=== PATIENT | female | born 1950 | race Caucasian/White ===

== ENCOUNTER 2021-09-07 14:58 | Emergency (ER) | payer MEDICARE, BC ==
[~2021-09-07] VITALS: Ht 167.6 cm; Wt 95.5 kg
[2021-09-07 15:29] VITALS: BP 155/87
--- NOTE | 2021-09-07 16:48 | NUR ---
RELL MAZARIEGOS AT BEDSIDE
== END 2021-09-07 18:50 | disposition home or self-care (01) ==
LOC: ER 15:03
DX: S00.83XA Contusion of other part of head, initial encounter (principal); S50.811A Abrasion of right forearm, initial encounter; S60.416A Abrasion of right little finger, initial encounter; M54.2 Cervicalgia; M25.531 Pain in right wrist; M79.644 Pain in right finger(s); M25.511 Pain in right shoulder; H92.01 Otalgia, right ear; Z90.710 Acquired absence of both cervix and uterus; Z88.0 Allergy status to penicillin; I11.0 Hypertensive heart disease with heart failure; I50.9 Heart failure, unspecified; K21.9 Gastro-esophageal reflux disease without esophagitis; E11.9 Type 2 diabetes mellitus without complications; E78.00 Pure hypercholesterolemia, unspecified; W01.0XXA Fall on same level from slipping, tripping and stumbling without subsequent striking against object, initial encounter; Z91.81 History of falling; Y93.89 Activity, other specified; Y92.89 Other specified places as the place of occurrence of the external cause; Y99.8 Other external cause status
CPT/HCPCS: 70450; 70486; 72125; 73110; 73130; 82948; 99284

== ENCOUNTER 2025-01-05 13:12 | Outpatient (CLI) | payer MEDICARE ==
--- NOTE | 2025-01-05 14:48 | RADIOLOGY REPORT ---
PROCEDURE: MR MRI LUMBAR SPINE INDICATION: LOW BACK PAIN Exam Date: 01/05/2025 01:29 PM COMPARISON: None TECHNIQUE: MRI lumbar spine without intravenous contrast. FINDINGS: Transitional lumbosacral vertebral body. Multilevel disc degeneration. Alignment: Grade 1 retrolisthesis of T12 on L1. Grade 1 retrolisthesis of L1 on L2. Grade 1 retrolisthesis of L2 on L3. Grade 2 retrolisthesis of L3 on L4. Grade 2 anterolisthesis of L4 on L5. Vertebrae: Vertebral body height is well maintained without evidence of a recent compression fracture. Conus: Conus medullaris terminates at the L1 level. Following axial levels detailed below: T12-L1: Grade 1 retrolisthesis of T12 on L1 by 2.6 mm. Disc desiccation. No spinal canal or neural foraminal stenosis. Facet arthrosis. L1-2: Grade 1 retrolisthesis of L1 on L2 by 2.6 mm. Disc desiccation. No spinal canal or neural foraminal stenosis. Facet arthrosis. L2-3: Grade 1 retrolisthesis of L2 on L3 by 3.7 mm. Disc desiccation. Mild bilateral lateral recess stenosis. Mild left foraminal stenosis. Facet arthrosis. L3-4: Grade 2 retrolisthesis of L3 on L4. Disc desiccation and 4.45 mm disc bulge. Mild spinal canal stenosis. Mild left lateral recess stenosis. Mild left foraminal stenosis. Facet arthrosis. L4-5: Grade 2 anterolisthesis of L4 on L5. Disc desiccation and 7.6 mm disc bulge. Mild disc height loss. Moderate spinal canal stenosis. Mild left and severe right lateral recess stenosis with right descending L5 nerve root compression. Mild left and severe right foraminal stenosis with potential right exiting L4 nerve root compression from bulge. Facet arthrosis. L5-S1: Transitional level. Disc desiccation. Mild disc height loss. No spinal canal or neural foraminal stenosis. Facet arthrosis. IMPRESSION: Multilevel disc degeneration. Multilevel spinal canal stenosis, most pronounced and moderate at L4-L5. Multilevel lateral recess stenosis, most pronounced and severe at L4-L5 with right descending L5 nerve root compression. Multilevel foraminal stenosis, most pronounced and severe at L4-L5 with potential right exiting L4 nerve root compression from bulge.
== END 2025-01-05 23:59 | disposition home or self-care (01) ==
LOC: MRI02 13:12
PROVIDERS: ATTEND Student in an Organized Health Care Education/Training Program
DX: M51.379 Other intervertebral disc degeneration, lumbosacral region without mention of lumbar back pain or lower extremity pain (principal); M54.50 Low back pain, unspecified; M47.815 Spondylosis without myelopathy or radiculopathy, thoracolumbar region; M48.05 Spinal stenosis, thoracolumbar region; M48.061 Spinal stenosis, lumbar region without neurogenic claudication
CPT/HCPCS: 72148

== ENCOUNTER 2025-04-01 13:00 | Inpatient (IN) | payer MEDICARE, BC ==
[~2025-04-01] VITALS: Ht 167.6 cm; Wt 85.0 kg
--- NOTE | 2025-04-01 13:42 | ELECTROCARDIOGRAPH REPORT ---
[facility] Test Date: 2025-04-01 Test Time: 13:09:46 Pat Name: ADEBAYO ASIF Department: EMERGENCY ROOM Room: ORTHO [facility] Gender: F Licensed Funeral Director: KATERINE : 1950 Requested By: ALEKSANDRA NAJERA Order Number: [id number] Reading MD: Dr. ALCIDES Layton Measurements Intervals [place] Rate: 64 P: 66 FL: 172 QRS: -77 QRSD: 126 T: 13 QT: 451 QTc: 466 Interpretive Statements Sinus rhythm RBBB and LAFB Probable left ventricular hypertrophy Electronically Signed On 04-02-2025 19:22:[address] ALCIDES Layton Please click the below link to view image of tracing.
[2025-04-01 13:45] LABS: MEAN PLATELET VOLUME 8.6 FL (7.4-10.4); RED CELL DISTRIBUTION WIDTH 15.3 % (11.5-14.5)
[2025-04-01 13:59] LABS: CREATININE 0.91 MG/DL (0.40-0.90); PRO BRAIN NATRIURETIC PEPTIDE 51 PG/ML (0-450); TOTAL CARBON DIOXIDE 24.7 MMOL/L (24-32); eCRCL 49 ML/MIN; eGFR 60 ML/MIN
--- NOTE | 2025-04-01 14:05 | RADIOLOGY REPORT ---
CHEST RADIOGRAPH Indication: CP Technique: Single frontal view of the chest was obtained Comparison: None FINDINGS: Lines and Tubes: None Lungs: No focal consolidation. Pleura: No effusion. No pneumothorax. Cardiomediastinal contours: Unremarkable Bones: No acute osseous abnormality. IMPRESSION: No acute cardiopulmonary disease.
--- NOTE | 2025-04-01 17:46 | Physician Documentation ---
Addendum CHIEF COMPLAINT/HPI: The patient is a 74-year-old female with a history of spinal stenosis in the cervical spine and lumbar spine. She also does have chronic positional vertigo. However, over the past four days it has been much worse. She denies any nausea/vomiting. No visual disturbances. REVIEW OF SYSTEMS: Constitutional: Denies chills, fatigue, fever, weight gain or weight loss. HEENT: Denies hearing loss, sinus pressure or visual changes. Respiratory: Denies cough, shortness of breath or wheezing. Cardiovascular: Denies chest pain, pain while walking (claudication), edema or palpitations. Gastrointestinal: Denies abdominal pain, blood in stool, constipation, diarrhea, heartburn, loss of appetite, nausea or vomiting. Genitourinary: Denies painful urination (dysuria), excessive amount of urine (polyuria) or urinary frequency. Metabolic/Endocrine: Denies cold intolerance, heat intolerance, excessive thirst (polydipsia) or excessive hunger (polyphagia). Neurological: Dizziness. Denies extremity numbness, extremity weakness, headaches, seizures or tremors. Psychiatric: Denies anxiety or depression. Integumentary: Denies breast discharge, breast lump, hives, mole change(s), rash or skin lesion. Musculoskeletal: Denies back pain, joint pain, joint swelling or neck pain. Hematologic: Denies easily bleeding, easily bruises, lymphedema or issues with blood clots. Immunologic: Denies food allergies or seasonal allergies. PHYSICAL EXAMINATION: Vitals and nursing note reviewed. Constitutional: General: Patient is awake, alert, oriented x 4 in no acute distress and well appearing. Speech is clear and lucid. Appearance: Normal appearance. Patient is not ill-appearing, toxic-appearing or diaphoretic. HENT: Head: Normocephalic and atraumatic. Mouth: Mucous membranes are moist. Pharynx: Oropharynx is clear. Eyes: General: No scleral icterus. Extraocular Movements: Extraocular movements intact. Pupils: Pupils are equal, round, and reactive to light. Neck: Supple, no Kernig or Brudzinski sign. Cardiovascular: Rate and Rhythm: Normal rate and regular rhythm. Heart sounds: No murmur heard. Pulmonary: Effort: No respiratory distress. Breath sounds: No wheezing, rhonchi or rales. Abdominal: General: There is no distension. Palpations: There is no fluid wave, hepatomegaly or mass. Tenderness: There is no abdominal tenderness. There is no guarding. Musculoskeletal: General: No swelling or deformity. Skin: Coloration: Skin is not jaundiced. Findings: No erythema or rash. Neurological examination: GCS: E-4, V-5, M-6 Motor strength: [motor strength] Sensory: [sensory] erisa attorney: II - XII intact Equilibratory intact MEDICAL DECISION MAKING: This 74-year-old lady presents with acute exacerbation of her dizziness. I have ordered a CT scan of her brain and will get her admitted for MRI. Departure Disposition: ADMITTED INPATIENT Impression: Primary Impression: Dizziness Additional Impression: Neck pain Condition: Stable Education Educated: Patient Educated regarding: diagnosis, treatment ALEKSANDRA NAJERA MD Apr 01, 2025 17:46
[2025-04-01] MEDS ORDERED: HYDROcodone/acetaminophen 5mg/325mg tablet PO PRN (18:00)
[2025-04-01] MEDS ORDERED: potassium Cl 40MEQ/1/2NS 520ml 520 ML IV PRN (18:00)
[2025-04-01] MEDS ORDERED: HYDROcodone/acetaminophen 10/325mg tab PO PRN (18:00)
[2025-04-01] MEDS ORDERED: magnesium sulf-water 4G/100mL 100 ML IV PRN (18:00)
[2025-04-01] MEDS ORDERED: magnesium hydroxide 30ml (MOM) UD suspension PO PRN (18:00)
[2025-04-01] MEDS ORDERED: morphine 4 MG/ML inj SYRINge IV PRN (18:00)
[2025-04-01] MEDS ORDERED: magnesium sulf-water 2g/50mL 50 ML IV PRN (18:00)
[2025-04-01] MEDS ORDERED: potassium Cl 20 mEq SR tablet PO PRN ×2 (18:00)
[2025-04-01] MEDS ORDERED: mag hydrox/Alum hydrox/simeth 30ml oral suspension PO PRN (18:00)
[2025-04-01] MEDS ORDERED: magnesium Cl slow-release 64mg tablet PO PRN (18:00)
--- NOTE | 2025-04-01 18:11 | RADIOLOGY REPORT ---
EXAM: CT CT HEAD INDICATION: Dizziness TECHNIQUE: CT of the head without intravenous contrast. Radiation Dose : 1. Head: CT Dose: CTDI volume is 59.8 mGy. Dose-length product is 1127 mGy*cm The dose indicators for CT are the volume Computed Tomography (CT) Dose Index (CTDIvol) and the Dose Length Product (DLP), and are measured in units of mGy and mGy-cm, respectively. These indicators are not patient dose, but values generated from the CT scanner acquisition factors. The report includes radiation exposure data for exposures received during this examination. COMPARISON: CT HEAD on DOS: 09/07/21 FINDINGS: There is no evidence of acute intracranial hemorrhage, extra-axial collection, mass effect, midline shift, herniation or hydrocephalus. The ventricles, sulci and cisterns are age appropriate. The tony-white differentiation is intact. Patchy periventricular and subcortical white matter hypoattenuation is nonspecific but may be related to small vessel ischemic disease. The visualized paranasal sinuses and mastoid air cells are clear. The surrounding soft tissues and osseous structures are unremarkable. IMPRESSION: No acute intracranial abnormality. Radiation optimization: All CT scans at this facility use at least one of these dose optimization techniques: automated exposure control mA and/or kV adjustment per patient size (includes targeted exams where dose is matched to clinical indication) or iterative reconstruction.
[2025-04-01 18:43] LABS: LEUKOCYTE ESTERASE ,URINE NEGATIVE (Neg); NITRITES, URINE NEGATIVE (Neg); OCCULT BLOOD,URINE NEGATIVE (Neg)
[2025-04-01 18:48] LABS: UA COLLECTION TYPE CLN CATCH MIDSTREAM
[2025-04-01 18:50] LABS: SQUAMOUS EPITHELIAL CELL,UR MODERATE /LPF (FEW)
--- NOTE | 2025-04-01 18:53 | HISTORY AND PHYSICAL-Residence ---
History & Physical Providers to CC Resident Creating Document: JEYSON MORALES, RES ~ History of Present Illness Reason for Admit\Complaint: Dizziness History of Present Illness A 74-year-old female with a past medical history of diabetes mellitus,DVT, peripheral neuropathy, hypertension, and benign paroxysmal positional vertigo (BPPV) presents to the ED with complaints of dizziness and problem maintaining the balance for the past 3 days. She reports near-syncopal episodes and trouble balancing that have been gradually worsening. These episodes are primarily triggered by standing from a sitting position and are relieved by lying flat. but fro past 5 days she mentoned having sevre problems with balance.Associated symptoms include nausea and tingling sensations in her feet. Symptoms are more pronounced when standing. Patient had a severe episodes of vertigo after post concussion happened 10 years ago She denies fall, palpitations, chest pain, shortness of breath, sweating, visual changes, weakness, numbness, or speech difficulties. Medication history: She started gabapentin 2 months ago but has not taken it for the past 23 days. Despite discontinuation, her symptoms persist. She reports no recent changes in other medications. Blood pressure during episodes has reportedly been within normal range per patient. Allergies: Coded Allergies: Penicillins (Verified Allergy, Unknown, 05/02/14) Home Medications Home Medications Active Past Medical History Past Medical History Type 2 diabetes mellitus Hypertension Peripheral neuropathy BPPV Charles's esophagus Gastroparesis Hiatal hernia Hemochromatosis Past Surgical History Surgical History Comment Cholecystectomy Total hysterectomy Lumpectomy of the left breast Left knee replacement Past Social History Social History Comment PCP-Clint Manager Client Service- trucksmith- Neurosurgeon- Patient lives alone in her home, she quit smoking cigarettes and she has occasional alcohol use Able to ambulate without any assistance Alcohol Use: None Drug Use: None Lives with: Spouse Lives In: Home Occupation: employed ROS ROS Review of system is negative except mentioned in the HPI Exam Vitals: Vital Signs Date Time Temp Pulse Resp B/P (MAP) Pulse Ox O2 Delivery O2 Flow Rate FiO2 04/01/25 17:00 67 12 132/67 (88) 95 0 04/01/25 13:41 Room Air* 21 04/01/25 13:03 98.1 General: Awake , alert, and oriented x4 HEENT: Atraumatic, normocephalic, EOMI, anicteric sclera ; pink conjunctiva, dry oral mucosa Neck: Trachea midline. Supple, full range of motion, no JVD Cardiac: Regular rhythm, regular rate with no murmurs all over the precordium. Respiratory: Equal breath sounds bilaterally, no tachypnea, no wheezing ,rub or rales, Chest wall is symmetric and without deformity. Gastrointestinal: Abdomen symmetric, non-distended, soft, non-tender, normal bowel sounds x4 quadrant, normoactive, no hepatosplenomegaly Neurological: Mental status exam: alert and consciousness, orientation, memory, speech - Cranial nerve test: Cranial nerves 2-12 intact - Motor system: Normal Nutrition, normal tone, Power 5/5, no involuntary movements - Sensory system: Intact - Reflex testing: Biceps, triceps and knee reflexes 2+ - Cerebellar: Normal Skin: Warm and dry Extremities : No Edema, peripheral pulses felt, No deformities Psychiatric:Appropriate mood and affect,No hallucinations or suicidal ideation Diagnostic Data Last Recorded Lab Results: 04/01/25 1309 04/01/25 1309 Advance Care Planning Advanced Care plannin - 30 Minutes Additional Plan 74 years old female with past medical history of hypertension, diabetes, BPPV he is currently evaluated for lightheadedness Dizziness likley due orthostatic hypotension Differentials include TIA/CVA as patient presents with severe problems with balance Differentials include Vertigo, dehydration Patient mentioned having severe lightheadedness when she stands and near-syncope but she denies any neurological symptoms, vision problems, slurry speech Chest [id number] Head CT-No acute intracranial abnormality. Follow up with echocardiogram Follow up with orthostatic vital, continuous telemetry Hypertension Patient has a history of high blood pressure, per patient she takes bisoprolol Today her blood pressure-130s to 150s Pending med rec, consider adding hydralazine if systolic blood pressure more than 170 bpm Type 2 diabetes mellitus Patient pending glucose-160 Follow up with HbA1c, if we will start hyperglycemia/hypoglycemia protocol Peripheral neuropathy Patient takes gabapentin, pending med rec History of cervical/lumbar spine herniated disc Patient denies any symptoms of weakness, numbness She follows Dr. Velasco outpatient neurosurgeon Advance care: I spent a total of 16 minutes reviewing various resuscitative measures/ACP with patient. The patient decided to be full Code Status: Full DVT prophylaxis: Heparin subQ Analgesia/Sedation: Morphine Nutrition: Regular PT: Ordered Prognosis: Guarded Disposition: Patient will be monitored 24 hours telemetry, follow up with carotid Doppler and orthostatic vitals Jeyson Morales PGY1-Internal Medicine Resident Date of Service: Apr 01, 2025 Billing Provider: PAULA HORTON MD Common Visit Codes: [id number] INP/OBS CARE (HIGH) Secondary Visit Codes: 42240-[id number] CARE PLAN 30 MINUTES JEYSON MORALES, RES Apr 01, 2025 18:53 PAULA HORTON MD Apr 03, 2025 07:43
[2025-04-01 19:37] LABS: CHOL/HDL RATIO 4.7 (0.00-4.99); LDL CHOLESTEROL 114 MG/DL (50-100)
[2025-04-01] MEDS: docusate sod 100mg capsule PO SCH (20:00)
[2025-04-01] MEDS: K and/or MAG REPLACEMENT MC SCH (20:00)
[2025-04-01] MEDS: heparin, porcine 5000 units/ml vial SQ SCH (20:00)
[2025-04-01 21:15] VITALS: BP_SYST 140; BP_SYST 153; BP_SYST 169; BP_DIAS 63; BP_DIAS 73; BP_DIAS 78; PULSE 68; PULSE 71; PULSE 75; RESP 18; TEMP 97.9; O2SAT 97
[2025-04-01 22:00] VITALS: BP 140/73; PULSE 68; RESP 18; RESP 21; TEMP 98; O2SAT 95; O2SAT 97
[2025-04-01] MEDS ORDERED: PANT40TA54 PO (22:16)
[2025-04-01] MEDS ORDERED: FENO134C22 PO (22:16)
[2025-04-01] MEDS ORDERED: BISO5TAB20 PO (22:16)
[2025-04-01] MEDS ORDERED: EMPA25TA PO (22:16)
[2025-04-01] MEDS ORDERED: APIX5TAB3 PO (22:16)
[2025-04-01] MEDS ORDERED: METF-900 PO (22:16)
[2025-04-01] MEDS ORDERED: GLIM1TAB57 PO (22:16)
[2025-04-01] MEDS ORDERED: DULO60CA65 PO (22:16)
[2025-04-01] MEDS ORDERED: BCOMPLEX (22:21)
[2025-04-01] MEDS ORDERED: fishoil (22:21)
[2025-04-01] MEDS ORDERED: [UNRECOGNIZED DRUG - OTHER] (22:21)
[2025-04-01] MEDS ORDERED: MAGN100T6 PO (22:21)
[2025-04-01] MEDS ORDERED: D3 PO (22:21)
[2025-04-01] MEDS: pantoprazole 40mg Tablet.DR PO SCH (23:19)
[2025-04-02 04:00] VITALS: BP 136/67; PULSE 70; RESP 19; TEMP 98.5; O2SAT 98
[2025-04-02 05:55] LABS: MEAN PLATELET VOLUME 8.7 FL (7.4-10.4); RED CELL DISTRIBUTION WIDTH 15.3 % (11.5-14.5)
[2025-04-02 06:00] VITALS: BP 125/71; PULSE 74; RESP 15; TEMP 98.3; O2SAT 96
[2025-04-02 06:33] LABS: CHOL/HDL RATIO 4.3 (0.00-4.99); CREATININE 0.78 MG/DL (0.40-0.90); LDL CHOLESTEROL 108 MG/DL (50-100); TOTAL CARBON DIOXIDE 23.6 MMOL/L (24-32); eCRCL 57 ML/MIN; eGFR 72 ML/MIN
[2025-04-02 09:00] VITALS: BP_SYST 121; BP_SYST 127; BP_SYST 131; BP_DIAS 64; BP_DIAS 72; BP_DIAS 73; PULSE 70; PULSE 73; PULSE 85
[2025-04-02] MEDS ORDERED: glucagon, human recombinant 1mg kit SUBCUT PRN (09:55)
[2025-04-02] MEDS ORDERED: dextrose 50%-water 50ml dispensing syringe IV PRN ×2 (09:55)
[2025-04-02] MEDS ORDERED: DEXTROSE 15 GM of carb/4 tabs (each vial/BOTTLE has 4 tablets) PO PRN ×2 (09:55)
[2025-04-02 10:00] VITALS: BP 127/64; PULSE 61; RESP 16; TEMP 97.4; O2SAT 91
[2025-04-02] MEDS: INSULIN LISPRO 100 UNIT/ML INSULN.PEN MULTI-DOSE SQ SCH (12:35)
[2025-04-02] MEDS: ondansetron/PF 4mg/2ml inj IV PRN (13:41)
--- NOTE | 2025-04-02 14:40 | [facility] CONSULT REPORT ---
[facility] Procedure Note [facility] Procedure Note Consult [facility] Note # Demographics Consult Type: General Neurology Patient Location: Inpatient First Name: noah Last Name: Coral Date of : 1950 Age: 74 Gender: Female Facility: [facility] Time of Initial Page (): 04/02/2025 14:02 First Contact with Site (): 04/02/2025 14:02 # HPI Chief Complaint: - dizziness Imbalance History: 74 F p/w dizziness, imbalance and tingling sensation of bilateral feet in the past 5 days. She reported feeling lightheaded when she stands up. It's a/w nausea. She denied room spinning sensation. Hx of chronic vertigo due to post concussion syndrome. However she said this episode is different as it is persistent without relief. # Scores Level of Consciousness 1a: [0] = Alert; keenly responsive LOC Questions 1b: [0] = Answers both questions correctly LOC Commands 1c: [0] = Performs both tasks correctly Best Gaze 2: [0] = Normal Visual 3: [0] = No visual loss Facial Palsy 4: [0] = Normal symmetrical movements Motor Arm Left 5a: [0] = No drift Motor Arm Right 5b: [0] = No drift Motor Leg Left 6a: [0] = No drift Motor Leg Right 6b: [0] = No drift Limb Ataxia 7: [0] = Absent Sensory 8: [0] = Normal Best Language 9: [0] = No aphasia Dysarthria 10: [0] = Normal Extinction and Inattention 11: [0] = No abnormality NIHSS Total: 0 # ROS Additional: - complete review of systems otherwise negative # PMH-FH-SH Past Medical History: - Diabetes - neuropathy - DVT, chronic vertigo # Data Head CT: - no bleed # Assessment Impression: - Imbalance, likely a combination of chronic vertigo, orthostasis and diabetic neuropathy Differential Diagnosis: - Ischemic Stroke (Acute) # Plan Labs: - hemoglobin A1c Imaging: (urgency: routine): - MRI Brain without contrast Therapy/Evaluation: - PT/OT evaluation - Check orthostatic VS Medication: Meclizine 25 mg TID prn Other: - If patient has any neurological deterioration please call me back immediately - would not pursue stroke work-up if MRI is negative - I have discussed my recommendations with the referring provider # Logistics Attestation of consult completion: The patient is located at: [facility]. Facility staff participated in the visit. I performed this telemedicine visit from my offsite office utilizing interactive 2 way audio and visual telecommunication technology at the request of the onsite inpatient provider. Total time spent in telemedicine encounter: I spent 19 minutes reviewing clinical data and/or imaging, obtaining history, examining the patient, commun icating with the onsite care team, and in preparation of this report. # Demographics First Name: noah Last Name: Yannickdhaval Facility: [facility] Electronically signed at 04/02/2025 14:38 ([place] Time) by Ana Cristina Curry MD Neuro Consult Order placed for: Yes ANA CRISTINA CURRY MD Apr 02, 2025 14:40
--- NOTE | 2025-04-02 15:26 | PROGRESS NOTE- Residence ---
Progress Note - Resident Providers to CC Resident Creating Document: JEYSON WAGONER, RES ~ Antibiotic Timeout Antibiotic Ordered?: No Subjective Seen and examined patient at bedside, she still reports problem with balance. No overnight symptoms are reported Objective Vital Signs Date Time Temp Pulse Resp B/P (MAP) Pulse Ox O2 Delivery O2 Flow Rate FiO2 04/02/25 06:30 71 04/02/25 06:00 98.3 15 125/71 (89) 96 Room Air 04/01/25 19:10 0 04/01/25 13:41 21 Result Diagram: 04/02/251 04/02/25450 Awake , alert, and oriented x4 HEENT: Atraumatic, normocephalic, EOMI, anicteric sclera ; pink conjunctiva, dry oral mucosa Neck: Trachea midline. Supple, full range of motion, no JVD Cardiac: Regular rhythm, regular rate with no murmurs all over the precordium. Respiratory: Equal breath sounds bilaterally, no tachypnea, no wheezing ,rub or rales, Chest wall is symmetric and without deformity. Gastrointestinal: Abdomen symmetric, non-distended, soft, non-tender, normal bowel sounds x4 quadrant, normoactive, no hepatosplenomegaly Neurological: Mental status exam: alert and consciousness, orientation, memory, speech - Cranial nerve test: Cranial nerves 2-12 intact - Motor system: Normal Nutrition, normal tone, Power 5/5, no involuntary movements - Sensory system: Intact - Reflex testing: Biceps, triceps and knee reflexes 2+ - Cerebellar: Normal Skin: Warm and dry Extremities : No Edema, peripheral pulses felt, No deformities Psychiatric:Appropriate mood and affect,No hallucinations or suicidal ideation Advance Care Planning Advanced Care plannin - 30 Minutes Assessment Assessment Ataxia Likely 2/2 TIA versus stroke Differentials include Vertigo, dehydration, orthostatic hypotension Patient mentioned severe problem with balance from past 3-4 days which was different from the episodes of vertigo that she had according to the patient Head CT-No acute intracranial abnormality. Started aspirin, Plavix, atorvastatin echocardiogram-pending Follow up with carotid ultrasound, MRI of the head Follow up with orthostatic vital, continuous telemetry Hypertension Patient has a history of high blood pressure, per patient she takes bisoprolol Today her blood pressure-current blood pressure-130s Currently maintaining permissive hypertension, continue home med bisoprolol after MRI head Type 2 diabetes mellitus [id number] Continued home medications metformin, glimepiride, empagliflozin Peripheral neuropathy Hold home med History of cervical/lumbar spine herniated disc Patient mentioned having severe dizziness and balance problem when she turns her neck She follows Dr. Velasco outpatient neurosurgeon Follow up with MRI cervical spine History of DVT Patient denies any chest pain right now Continue home med Eliquis 5 mg p.o. b.i.d. Advance care: I spent a total of 16 minutes reviewing various resuscitative measures/ACP with patient. The patient decided to be full Code Status: Full DVT prophylaxis: Eliquis Analgesia/Sedation: Morphine Nutrition: Regular PT: Ordered Prognosis: Guarded Disposition: Patient will be monitored 24 hours telemetry, follow up with MRI Jeyson Wagoner PGY1-Internal Medicine Resident Date of Service: Apr 02, 2025 Billing Provider: PAULA HORTON MD Common Visit Codes: [id number] INP/OBS CARE(HIGH) JEYSON WAGONER, OLINDA Apr 02, 2025 15:26 PAULA HORTON MD Apr 03, 2025 07:45
[2025-04-02] MEDS: EMPAGLIFLOZIN 25 MG TABLET PO SCH (16:21)
[2025-04-02 18:25] VITALS: BP 130/75; PULSE 72; RESP 18; TEMP 97.5; O2SAT 97
--- NOTE | 2025-04-02 19:45 | CARDIOLOGY REPORT ---
APPROVED REPORT EXAM: Comprehensive 2D, Doppler, and color-flow Echocardiogram. Patient Location: 4[address] Heart Rate: 60's bpm Rhythm: Sinus Indications CONGESTIVE HEART FAILURE HYPERTENSION Crematory Operator: Darius DOUGLAS MD Previous echo: NONE AVAILABLE (AFTER HOURS) 2D Dimensions RVDd 3.9 cm IVSd 0.9 (0.7-1.1cm) LVDd 5.2 cm PWd 1.0 (0.7-1.1cm) IVSs 1.2 (0.8-1.2cm) LVDs 3.2 (2.5-4.0cm) PWs 1.2 (0.8-1.2cm) LVOT Diameter 1.94 (1.8-2.4cm) LVEF(%) 67.7 (>50%) FS (%) 37.9 % SV 86.4 ml CO 6.0 L/min M-Mode Dimensions Left Atrium(MM) 4.78 (2.5-4.0cm) Aortic Root 2.87 (2.2-3.7cm) Aortic Cusp Exc 1.61 (1.5-2.0cm) Aortic Valve AoV Peak Jaguar. 163.8 cm/s AoV VTI 27.4 cm AO Peak GR. 10.7 mmHg AO Mean GR. 5 mmHg LVOT VTI 24.55 cm LVOT Peak Jaguar. 112.0 cm/s YVONNE (VTI) 2.65 cm2 Mitral Valve MV E Velocity 71.1 cm/s MV Peak Gr. 3 mmHg MV DECEL TIME 280 ms MV A Velocity 100.7 cm/s MV PHT 72 ms E/A Ratio 0.7 MVA (PHT) 3.06 cm2 MV VMax 82.4 cm/s TDI Lateral E' P. V 9.93 cm/s E/Lateral E' 7.2 Tricuspid Valve TR P. Velocity 281 cm/s RAP ESTIMATE 10 mmHg TR Peak Gr. 32 mmHg RVSP 42 mmHg LEFT VENTRICLE Normal LV size and wall thickness. Overall systolic function is normal. Overall LVEF is 60-65%. RIGHT VENTRICLE RV is mildly dilated with normal function. Estimated PA systolic pressure of 42 mm of mercury. ATRIA Left atrium is mildly dilated. AORTIC VALVE Trileaflet AV appears mildly sclerotic without stenosis. No insufficiency by color and spectral flow Doppler. MITRAL VALVE Mild MV annular calcification without stenosis. Trace regurgitation by color and spectral flow Doppler. TRICUSPID VALVE TV appears structurally normal with trace regurgitation by color and spectral flow Doppler. PULMONIC VALVE Normal PV without stenosis, physiologic insufficiency by color and spectral flow Doppler. GREAT VESSELS The aortic root is normal in size. PERICARDIUM Normal pericardium. No effusion. Other Information Study Quality: Adequate Conclusion Overall LVEF is 60-65%. Normal LV size and wall thickness. Overall systolic function is normal. RV is mildly dilated with normal function. Estimated PA systolic pressure of 42 mm of mercury. Trileaflet AV appears mildly sclerotic without stenosis. No insufficiency by color and spectral flow Doppler. Mild MV annular calcification without stenosis. Trace regurgitation by color and spectral flow Doppler. TV appears structurally normal with trace regurgitation by color and spectral flow Doppler. Normal pericardium. No effusion.
[2025-04-02 20:00] VITALS: BP 119/60; PULSE 65; RESP 14; TEMP 97.2; O2SAT 96
[2025-04-02] MEDS ORDERED: pantoprazole 40mg Tablet.DR PO SCH (20:00)
[2025-04-03] VITALS (9 sets, daily range): BP systolic 120–173; BP diastolic 61–84; PULSE 60–96; RESP 16–18; TEMP 96.7–97.6; O2SAT 94–97
[2025-04-03 06:08] LABS: MEAN PLATELET VOLUME 8.4 FL (7.4-10.4); RED CELL DISTRIBUTION WIDTH 15.4 % (11.5-14.5)
[2025-04-03 06:44] LABS: CREATININE 0.91 MG/DL (0.40-0.90); TOTAL CARBON DIOXIDE 27.7 MMOL/L (24-32); eCRCL 49 ML/MIN; eGFR 60 ML/MIN
--- NOTE | 2025-04-03 10:20 | RADIOLOGY REPORT ---
CLINICAL INDICATION: suspected stroke COMPARISON: CT CT HEAD on DOS: 04/01/25, CT HEAD on DOS: 09/07/21 TECHNIQUE: Multisequence multiplanar MRI images of the brain were obtained without contrast. FINDINGS: No acute infarct or hemorrhage. No mass or midline shift. Scattered areas of T2/FLAIR hyperintense signal in the periventricular and subcortical white matter are nonspecific, but most likely sequelae of chronic small vessel ischemic disease. Ventricles and sulci are within normal limits. Basal cisterns are patent. Cerebellum, brainstem, and midline structures are within normal limits. Paranasal sinuses are clear. There are bilateral lens prostheses. Orbits are otherwise grossly unremarkable. IMPRESSION: 1. No evidence of acute intracranial abnormality. 2. Nonacute findings as described above.
--- NOTE | 2025-04-03 11:59 | RADIOLOGY REPORT ---
PROCEDURE: MRI cervical spine without contrast. INDICATION: Suspected Cervical stenosis. COMPARISON: CT CERVICAL SPINE on DOS: 09/07/21 TECHNIQUE: MRI of the cervical spine without intravenous contrast utilizing multiplanar, multisequence technique. FINDINGS: The alignment of the cervical spine vertebral bodies is preserved. The vertebral body heights are maintained. The intervertebral disc spaces are maintained in height and signal characteristics. The bone marrow signal is homogenous and unremarkable. The cervical spinal cord is normal in signal characteristics and caliber. Posterior fossa structures are unremarkable. No cerebellar tonsillar herniation. Paraspinal muscles are unremarkable. At the C2-C3 level, there is posterior central disc protrusion. No significant spinal stenosis. There is mild left neural foraminal stenosis due to uncovertebral hypertrophy. The right neural foramen is patent. At the C3-C4 level, there is a posterior disc osteophyte complex which is asymmetric to the left. There is mild spinal stenosis. There is severe left neural foraminal stenosis. The right neural foramina is patent. At the C4-C5 level, there is posterior disc osteophyte complex causing mild spinal stenosis. There is severe right and moderate to severe left neural foraminal stenosis. At the C5-C6 level, there is posterior disc osteophyte complex. There is mild spinal stenosis. Severe bilateral neural foraminal stenosis. At the C6-C7 level, there is posterior disc osteophyte complex. There is severe left neural foraminal stenosis. The right neural foramina is patent. At the C7-T1 level, there is no evidence of central spinal canal or neuroforaminal stenosis. Bilateral facet arthropathy. Other: None. IMPRESSION: 1. Multilevel degenerative changes in the cervical spine. This includes severe right and moderate to severe left neural foraminal stenosis at C4-C5 and severe neural foraminal stenosis at C3-C4, C5-C6 and C6-C7 as described.
[2025-04-03] MEDS: normal saline 500ml IV soln 500 ML IV ONE (14:17)
[2025-04-03] MEDS: metoprolol succinate 25mg (24-HOUR) SR. Tablet PO SCH (16:21)
--- NOTE | 2025-04-03 18:41 | VASCULAR REPORT ---
CLINICAL HISTORY: Dizziness, vertigo. TECHNIQUE: Duplex carotid Doppler ultrasound was performed. Grayscale, color- flow, and spectral waveform analysis was performed. COMPARISON: None FINDINGS: There is mild calcified plaque seen on tony scale imaging in the carotid bifurcations and proximal ICAs bilaterally. There is no significant elevation of the peak systolic velocity. There is no significant spectral broadening. Color doppler examination demonstrates no evidence for significant turbulent flow. Findings correspond to the less than 50% stenosis category. Antegrade flow is noted in both vertebral arteries. Multiphasic flow in the bilateral subclavian arteries. EXAMINATION DATA: RIGHT PSV (cm/s) EDV (cm/s) ICA 93 24 CCA 93 ECA 111 ICA/CCA Ratio: 1.0 Vertebral Flow: antegrade LEFT PSV (cm/s) EDV (cm/s) ICA 98 33 CCA 96 ECA 111 ICA/CCA Ratio: 1.02 Vertebral Flow: antegrade IMPRESSION: 1. Findings consistent with the less than 50% carotid stenosis category bilaterally. 2. Antegrade flow in the vertebral arteries.
--- NOTE | 2025-04-03 19:32 | PROGRESS NOTE- Residence ---
Progress Note - Resident Providers to CC Resident Creating Document: JEYSON WAGONER RES ~ Antibiotic Timeout Antibiotic Ordered?: No Subjective Seen and examined patient at bedside, patient is orthostatic positive and was given normal saline 500 mL bolus MRI ruled out stroke and we discontinued Plavix, aspirin, statin PT recommended home with barrier, and patient need to be re-evaluated by PT before discharge Objective Vital Signs Date Time Temp Pulse Resp B/P (MAP) Pulse Ox O2 Delivery O2 Flow Rate FiO2 04/03/25 15:27 76 160/72 (101) 96 157/72 (100) 72 170/82 (111) 04/03/25 10:00 97.6 17 97 Room Air 04/01/25 19:10 0 04/01/25 13:41 21 Result Diagram: 04/03/258 04/03/25457 Awake , alert, and oriented x4 HEENT: Atraumatic, normocephalic, EOMI, anicteric sclera ; pink conjunctiva, dry oral mucosa Neck: Trachea midline. Supple, full range of motion, no JVD Cardiac: Regular rhythm, regular rate with no murmurs all over the precordium. Respiratory: Equal breath sounds bilaterally, no tachypnea, no wheezing ,rub or rales, Chest wall is symmetric and without deformity. Gastrointestinal: Abdomen symmetric, non-distended, soft, non-tender, normal bowel sounds x4 quadrant, normoactive, no hepatosplenomegaly Neurological: Mental status exam: alert and consciousness, orientation, memory, speech - Cranial nerve test: Cranial nerves 2-12 intact - Motor system: Normal Nutrition, normal tone, Power 5/5, no involuntary movements - Sensory system: Intact - Reflex testing: Biceps, triceps and knee reflexes 2+ - Cerebellar: Normal Skin: Warm and dry Extremities : No Edema, peripheral pulses felt, No deformities Psychiatric:Appropriate mood and affect,No hallucinations or suicidal ideation Advance Care Planning Advanced Care plannin - 30 Minutes Assessment Assessment Ataxia Likely 2/2 Orthostatic hypotension TIA Stroke ruled out Patient mentioned severe problem with balance from past 3-4 days which was different from the episodes of vertigo that she had according to the patient Head CT-No acute intracranial abnormality. Started aspirin, Plavix, atorvastatin echocardiogram-LVEF is 60-65%., RVSP 42 carotid ultrasound-normal, MRI of the head-ruled out any intracranial abnormalities Orthostatics are positive and patient was given normal saline 500 mL bolus PT recommended home with barriers, pending re-evaluation by the PT before discharge Hypertension Patient has a history of high blood pressure, per patient she takes bisoprolol Patient blood pressure is at 160s, continue home med Type 2 diabetes mellitus [id number] Continued home medications metformin, glimepiride, empagliflozin Peripheral neuropathy Hold home med History of cervical/lumbar spine herniated disc Patient mentioned having severe dizziness and balance problem when she turns her neck She follows Dr. Velasco outpatient neurosurgeon MRI of the cervical spine showed Multilevel degenerative changes in the cervical spine. This includes severe right and moderate to severe left neural foraminal stenosis at C4-C5 and severe neural foraminal stenosis at C3-C4, C5-C6 and C6-C7 History of DVT Continue home med Eliquis 5 mg p.o. b.i.d. Code Status: Full DVT prophylaxis: Eliquis Analgesia/Sedation: Morphine Nutrition: Regular PT: Ordered Prognosis: Guarded Disposition: Patient will be monitored 24 hours telemetry, Jeyson Wagoner PGY1-Internal Medicine Resident Date of Service: Apr 03, 2025 Billing Provider: PAULA HORTON MD Common Visit Codes: [id number] INP/OBS CARE(HIGH) JEYSON WAGONER, OLINDA Apr 03, 2025 19:32 PAULA HORTON MD Apr 04, 2025 07:25
[2025-04-04 06:00] VITALS: BP 130/75; PULSE 63; RESP 16; TEMP 97.7; O2SAT 97
[2025-04-04 06:14] LABS: MEAN PLATELET VOLUME 8.4 FL (7.4-10.4); RED CELL DISTRIBUTION WIDTH 15.1 % (11.5-14.5)
[2025-04-04 06:43] LABS: CREATININE 0.90 MG/DL (0.40-0.90); TOTAL CARBON DIOXIDE 25.1 MMOL/L (24-32); eCRCL 50 ML/MIN; eGFR 61 ML/MIN
[2025-04-04 08:00] VITALS: RESP 16; O2SAT 97
[2025-04-04 09:43] VITALS: BP_SYST 148; BP_SYST 151; BP_SYST 156; BP_DIAS 81; BP_DIAS 83; PULSE 69; PULSE 71; PULSE 80
[2025-04-04 10:00] VITALS: BP 148/83; PULSE 71; RESP 15; TEMP 98.4; O2SAT 97
[2025-04-04] MEDS ORDERED: METO-411 PO (12:25)
--- NOTE | 2025-04-04 13:22 | DISCHARGE SUMMARY-Residence ---
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 Operations\Procedures: None Consultants: None Complications: None Condition on DC: Stable for transfer New Medications: Metoprolol Succinate (Metoprolol Succinate) 100 Mg Tab.sr.24h 1 TAB PO DAILY for 30 Days, #30 TAB 0 Refills Continued Medications: Apixaban (Eliquis) 5 Mg Tablet 1 TAB PO BID [bcomplex] () Bisoprolol Fumarate (Bisoprolol Fumarate) 5 Mg Tablet 1 TAB PO DAILY [D3] () 2000 UNITS PO Duloxetine HCl (Duloxetine HCl) 60 Mg Capsule.dr 1 CAP PO DAILY Empagliflozin (Jardiance) 25 Mg Tablet 1 TAB PO DAILY Fenofibrate,Micronized (Fenofibrate) 134 Mg Capsule 1 CAP PO DAILY [fishoil] () Unknown Strength Unknown Dose Glimepiride* (Amaryl*) 1 Mg Tablet 1 TAB PO DAILY Magnesium Citrate (Magnesium Citrate) 100 Mg Tablet 1 TAB PO HS for 30 Days, #30 TAB 0 Refills Metformin Hcl* (Metformin ER*) 500 Mg Tab.sr.24h 2 TAB PO BID Pantoprazole Sodium (Pantoprazole Sodium) 40 Mg Tablet.dr 1 TAB PO BID [prob] () Discharge Summary: This is a 74-year-old female patient with a past medical history of hypertension, type 2 diabetes mellitus on metformin, history of recurrent DVT and history of peripheral neuropathy secondary cervical/lumbar spine herniated disc who presented to the hospital with complaints of worsening dizziness over the prior four days before hospitalization. She has a had positional dizziness before but these symptoms at presentation were new and unrelated to change in position. She reported that she woke up with dizziness. Due to this reason, she was evaluated to rule out for a stroke. The CTA head, MRI head and carotid ultrasound were all normal. An echocardiogram was also normal. Neurology was also consulted and acute ischemic stroke was ruled out. Her orthostatics were positive in the hospitalization she was corrected by IV fluid therapy. On the other hand, the patient also developed new onset of worsening hypertension over the last four days prior to the hospitalization. She usually has had good blood pressure control between the 120 to 130s systolic blood pressure and diastolic between 70-80 mmHg but over the last four days, she reported that her blood pressure has been persistently elevated in the 150s. But she had no secondary f indings likely renal injury, proteinuria or hematuria. Her home blood pressure medication of bisoprolol 5 mg which was continued but her blood pressure continued to be elevated reaching up to the 170s of SBP. A metoprolol 100 mg daily was added to her home medication list. Heart rate and blood pressure maintained well, the patient was monitored closely on telemetry. Prior to flako johnson, she was evaluated daily for three days by Physical therapy. She continued to have persistent dizziness especially when changing head positions as well as when standing. As per physical therapy evaluation, they consider her dizziness to be associated with both orthostatics as well as cervical stenosis. However, after supplementation of the fluids, the patient's dizziness likely improved. Physical therapy evaluated the patient closely and recommended daily Physical therapy at home with plan for gait/balance training and advised to follow up with an exercise program. As the patient remained hemodynamically stable and had some improvement prior to admission, the patient was stable for discharge back home with the home health services of physical therapy and nursing. Advised at discharge: Kindly follow up with the PCP and Neurosurgery in 1-2 weeks. Repeat labs including CBC and CMP in 1-2 weeks. Daily physical therapy as indicated. We are sending her home health with physic al therapy management. We are sending you with a new medication of metoprolol 100 mg daily, check your blood pressure and your heart rate every day twice a day for the next one week and take it your primary care provider for further evaluation. We found that you have severe cervical spinal stenosis which could be causing his symptoms and needs to be evaluated by the neurosurgeon. Due to the new onset of worsening high blood pressure, we recommend following up with the primary care provider to evaluate for secondary causes of elevated new worsening blood pressure. If you have recurrence of symptoms or persistently worsening symptoms, kindly returned back to the nearest ER. Physical exam at discharge: Awake , alert, and oriented x4 HEENT: Atraumatic, normocephalic, EOMI, anicteric sclera ; pink conjunctiva, dry oral moist. No nystagmus Cardiac: Regular rhythm, regular rate with no murmurs all over the precordium. Respiratory: Equal breath sounds bilaterally, no tachypnea, no wheezing ,rub or rales, Chest wall is symmetric and without deformity. Gastrointestinal: Abdomen symmetric, non-distended, soft, non-tender, normal bowel sounds x4 quadrant, normoactive Neurological: Mental status exam: alert and consciousness, orientation, memory, speech - Cranial nerve test: Cranial nerves 2-12 intact - Motor system: Normal Nutrition, normal tone, Power 5/5, no involuntary movements - Sensory system: Intact - Reflex testing: Biceps, triceps and knee reflexes 2+ - Cerebellar: Normal Skin: Warm and dry Extremities : No Edema, peripheral pulses felt, No deformities Psychiatric: Appropriate mood and affect,No hallucinations or suicidal ideation Labs at discharge: WBC 8.6, RBC 5.1, hemoglobin 14.2, platelet 290 Sodium 142, potassium 4.1, chloride 107, bicarb 25.1, BUN 22, creatinine 0.9, blood glucose 118 Medications at discharge: Metoprolol 100 mg, Eliquis 5 mg b.i.d., bisoprolol 5 mg daily, duloxetine 60 mg daily, vitamin D3 2000 units, Jardiance 25 mg daily, fenofibrate 134 mg daily, glimepiride 1 mg daily, magnesium citrate 100 mg daily, metformin 1000 mg b.i.d., Protonix 40 mg b.i.d. *Problems/Diagnosis: (1) Dizziness Status: Acute Total Time Spent on D/C: Up to 30 Minutes Date of Service: Apr 04, 2025 Billing Provider: PAULA HORTON MD Common Visit Codes: 72830-UMS/OBS DISCH DAY >30min ELMIRA ZHENG, OLINDA Apr 04, 2025 13:21 PAULA HORTON MD Apr 05, 2025 07:51
== END 2025-04-04 13:45 | disposition home health service (06) | DRG 74 ==
LOC: ER 13:00 → ED HOLD 18:04 → ORTHO 4S 21:07
PROVIDERS: ADMIT Internal Medicine; ATTEND Internal Medicine
DX: G90.89 Other disorders of autonomic nervous system (principal); E11.42 Type 2 diabetes mellitus with diabetic polyneuropathy; I10 Essential (primary) hypertension; I95.1 Orthostatic hypotension; M48.02 Spinal stenosis, cervical region; Z96.652 Presence of left artificial knee joint; Z87.891 Personal history of nicotine dependence; Z86.718 Personal history of other venous thrombosis and embolism
CPT/HCPCS: 36415; 70450; 70551; 71045; 72141; 80048; 80061; 81001; 82948; 83036; 83735; 83880; 84484; 85025; 87081; 93005; 93306; 93880; 97110; 97162; 97530; 99285; G0378; J1815; J2405; J7040